=== PATIENT | female | born 1975 | race Caucasian/White ===

== ENCOUNTER 2017-09-02 15:48 | Emergency (ER) | payer MEDICARE ==
--- NOTE | 2017-09-02 16:14 | ED Physician Documentation ---
General Adult - HISTORIAN Historian: patient, spouse - HPI Stated Complaint: R leg pain Chief Complaint: General Adult Onset: minutes Timing: still present Severity: moderate Further Comments: yes (Pt is a 42 yo female who got up from a chair quickly to separate her dogs, who were fighting, when her R leg slid out from under her. Pt has pain in the rear of her R thigh. She nearly fell a second time, due to the pain in her posterior thigh. Pt does not have pain within the knee joint or hip. She does not have back pain.) - ROS CONST: no problems EYES/ENT: none CVS/RESP: none GI/: none MS/SKIN/LYMPH: other (pain in R thigh) - PAST HX Past History: other (DM) Allergies/Adverse Reactions: Allergies Allergy/AdvReac Type Severity Reaction Status Date / Time No Known Allergies Allergy Verified 09/02/17 16:32 Home Medications: Ambulatory Orders Medication Instructions Recorded Metformin HCl [Glucophage] 500 mg PO BID 09/02/17 - SOCIAL HX Smoking History: cigarettes - FAMILY HX Family History: No - REVIEWED ASSESSMENTS Nursing Assessment Reviewed: Yes Vitals Reviewed: Yes Progress - Progress Progress: Toradol 60 mg IM D/c instructions: Ibuprofen 200 mg. Take 2 or 3 tablets every 8 hrs with food. Crutches as needed to rest R lower extremity. ED Results Lab/Radiology - Orders Orders: ED Orders Category Date Time Status Ketorolac Tromethamine [Toradol] Med 09/02/17 16:00 Discontinued 60 mg IM NOW ONE General Adult Physical Exam - PHYSICAL EXAM GENERAL APPEARANCE: moderate distress NECK: normal inspection, supple RESPIRATORY: no resp distress, chest non-tender, breath sounds normal CVS: reg rate & rhythm, heart sounds normal BACK: normal inspection, no CVA tenderness SKIN: warm/dry, normal color EXTREMITIES: other (tenderness R posterior thigh; R knee FROM, no tenderness or ligamentous instability; R hip FROM) NEURO: oriented X3, motor nml, sensation nml Discharge Clincal Impression: Musculoskeletal pain Referrals: Cherie Hernandez FNP [Primary Care Provider] - Condition: Good Disposition: 01 HOME, SELF-CARE Decision to Admit: NO Decision Time: 16:16
[2017-09-02] MEDS: KETOROLAC TROMETHAMINE 60 MG/2 ML VIAL IM ONE (16:33)
[2017-09-02 16:48] VITALS: BP 162/80
== END 2017-09-02 16:46 | disposition home or self-care (01) ==
LOC: ED 15:48
DX: M79.604 Pain in right leg (principal)
CPT/HCPCS: 81025; 96372; 99282; J1885